=== PATIENT | male | born 1945 | race Caucasian/White ===

== ENCOUNTER 2016-07-01 01:55 | Inpatient (IN) | payer OTHER, MEDICARE ==
[~2016-07-01] VITALS: Ht 180.3 cm; Wt 93.0 kg
[~2016-07-01 01:55] MED LIST: AMLODIPINE BESY10 M1 PO; BYSTOLIC 5MG5 MG PO; BYSTOLIC10 M1 PO; CHILDREN'S ASPI81 M1 PO; CRESTOR20 M2 PO; CRESTOR20 MG PO; FISH OIL 1,2001 EACH PO; GLUCOSAMINE CH1 EAC6 PO; HCTZ/LISINOPRIL1 TA1 PO; LISINOPRIL-HCT1 EACH PO; MULTI-DAY VITA1 EACH PO; NORVASC 5MG TAB5 MG PO; NORVASC5 M1 PO; PLAVIX75 M1 PO; TESSALON PERLE100 MG SC; TESTOSTERO100 MG/1 M IM; TESTOSTERO200 MG/1 M IM; VITAMIN D2000 UNI1 PO
--- NOTE | 2016-07-01 14:10 | PN- Orthopedic ---
Subjective Subjective: Postop check Patient is now postoperative day #0 status post right total knee arthroplasty. Patient is seen in PACU. He has no major complaints at this time. He denies pain. He is tolerating sips of thin elena carol ann without complaints of nausea or emesis. Perales catheter remains in place. Denies headache, dizziness, chest pain, shortness of breath. Objective Vital Signs and I&Os Patient is afebrile. Vital signs as per the PACU report are stable. Physical Exam: Gen.: Patient is awake and alert. He is in no acute distress. Cardiac: Regular. No murmurs are appreciated. Pulmonary: Lungs are clear to auscultation bilaterally. No wheezes or appreciated. Extremities: The right lower extremity dressing is clean, dry, and intact. Foot is warm. There is mild calf edema on the right, but within expected postoperative limits. 2+ DP and PT pulses are appreciated. Strength of dorsiflexion and plantar flexion on the right 4 out of 5. Assessment/Plan Assessment/Plan Patient is a 71-year-old male with a past medical history significant for hypertension and peripheral vascular disease, who is now postoperative day #0 status post right TKA. Patient remains stable from a surgical standpoint. Plan: -Okay to advance diet as tolerated. -Leave Perales catheter in place for I's and O's. Continue IV fluids at 75 ML's per hour until tolerating adequate by mouth. We'll likely remove the catheter in the morning. -Percocet or morphine can be used as needed for pain. -PT consult for mobilization and discharge planning. She may weight-bear as tolerated with an assistive device. -Coumadin for DVT prophylaxis. Titrate dose to keep INR 2-3. Hold Plavix while on Coumadin. -Bowel regimen with Colace twice a day and MiraLAX daily. -24 hours of prophylactic IV antibiotics. -Home meds resumed, including beta jeyson. -Plan for dressing change of postop day #2. Core Measures/Miscellaneous Perales Catheter Date In: 07/01/16 Still Needed? Yes Venous Thromboembolism VTE Risk Factors: Age > 40, Surgery VTE Contraindications: No Contraindications VTE Prophylaxis Ordered Inpt: Mech & Pharm VTE Diagnosis: No Beta Jeyson Is Beta Jeyson a Home Med? Yes Antibiotics Is Patient on Antibiotics? Yes If Yes: prophylaxis
[2016-07-01 14:43] VITALS: BP 168/44
[2016-07-01 17:14] VITALS: BP 130/60
[2016-07-01 18:56] VITALS: BP 130/50
--- NOTE | 2016-07-01 20:45 | NUR ---
PT ARRIVED TO FLOOR APPROX 1420. AMBULATED FROM STRETCHER TO BED WITH PT. ORIENTED TO FLOOR, BROCHURE.
[2016-07-01 21:55] VITALS: BP 150/50
[2016-07-02 01:24] VITALS: BP 120/50
[2016-07-02 05:22] VITALS: BP 146/60
--- NOTE | 2016-07-02 07:35 | PN- Orthopedic ---
See Addendum Subjective Subjective: Reports discomfort under right knee. Pain improves with percocet and morphine. Tolerating clears. No nausea. Feels slightly dizzy in bed. No shortness of breath. No chest pains. Awaiting PT. Objective Vital Signs and I&Os Vital Signs Date Time Temp Pulse Resp B/P Pulse O2 O2 Flow FiO2 Ox Delivery Rate 07/02 0522 97.9 104 20 146/60 92 Room Air 07/02 0124 98.3 96 20 120/50 94 Room Air 07/01 2155 98.9 90 20 150/50 90 Room Air 07/01 2139 80 150/50 07/01 1856 97.9 87 20 130/50 93 Room Air 07/01 1714 97.5 86 20 130/60 95 Room Air 07/01 1443 96.8 80 18 168/44 94 Room Air Intake & Output 07/02 0800 07/02 0000 07/01 1600 07/01 0800 07/01 0000 06/30 1600 Intake Total 800 850 Output Total 1400 1600 Balance -600 -750 Intake, IV 600 600 Intake, Oral 200 250 Output, Urine 1400 1600 Patient 205 lb Weight Physical Exam: General - alert & oriented x 3. comfortable. no acute distress. Lungs - clear bilaterally. no w/r/r. Cardiac - s1s2. reg. Abdomen - soft. nontender. - nicole draining clear, yellow urine. Extremities - warm bilaterally. dressing c/d/i. no drains. calves soft and nontender. venodynes active b/l. Assessment/Plan Assessment/Plan Patient is a 71-year-old male with a past medical history significant for hypertension and peripheral vascular disease, who is now POD#1 s/p right TKR tolerating diet. d/c iv fluids d/c nicole PT eval f/u labs coumadin accordingly. hold plavix while taking coumadin. home bp meds ordered, including beta jeyson bowel regime ordered shalini-op antibiotics complete dressing change tomorrow will d/w Core Measures/Miscellaneous Nicole Catheter Date In: 07/01/16 Venous Thromboembolism VTE Risk Factors: Age > 40, Surgery VTE Contraindications: No Contraindications VTE Prophylaxis Ordered Inpt: Mech & Pharm VTE Diagnosis: No Beta Jeyson Is Beta Jeyson a Home Med? Yes Antibiotics Is Patient on Antibiotics? Yes If Yes: prophylaxis
[2016-07-02 09:18] LABS: ABSOLUTE BASOPHIL COUNT 0 /CUMM (0.0-0.2); ABSOLUTE EOSINOPHIL COUNT 0 /CUMM (0.0-0.7); ABSOLUTE GRANULOCYTE CT 8.5 /CUMM (1.4-6.5); ABSOLUTE LYMPH COUNT 1.5 /CUMM (1.2-3.4); ABSOLUTE MONOCYTE COUNT 0.9 /CUMM (0.10-0.60); BASOPHIL % 0.2 % (0.0-2.0); EOSINOPHIL % 0.2 % (0-5); GRANULOCYTE % 77.3 % (42.2-75.2); HEMATOCRIT 39.4 % (42-52); MEAN CORPUSCULAR HGB 33.6 PG (27.0-31.0); MEAN CORPUSCULAR HGB CONC 34.8 G/DL (33.0-37.0); MEAN CORPUSCULAR VOLUME 96.4 FL (80.0-94.0); MEAN PLATELET VOLUME 7.4 FL (7.4-10.4); PLATELET COUNT 231 /CUMM (130-400); RBC DISTRIBUTION WIDTH 13.1 % (11.5-14.5); RED BLOOD CELL CT 4.09 /CUMM (4.70-6.10); WHITE BLOOD CELL COUNT 10.9 /CUMM (4.8-10.8)
[2016-07-02 09:27] LABS: PT 12.1 SEC (9.4-12.5)
[2016-07-02 15:42] VITALS: BP 140/60
--- NOTE | 2016-07-02 16:22 | NUR ---
PT FEELING NAUSEOUS AT 1400, MEDICATED WITH ZOFRAN. PT ATTRIBUTES TO LACK OF SLEEP, NOT EATING ENOUGH, AND PERCOCET. ENCOURAGED TO EAT SMALL AMOUNTS AND TRY TO REST.
[2016-07-02 21:00] VITALS: BP 110/64
--- NOTE | 2016-07-03 07:15 | PN- Orthopedic ---
See Addendum Subjective Subjective: He reports "upset stomach" after percocet yesterday. Taking morphine for pain control. He's resistant to bearing weight on his operative leg due to pain. He anticipates needing rehab. No dizziness. No shortness of breath. No chest pains. Voiding without difficulty. Objective Vital Signs and I&Os Vital Signs Date Time Temp Pulse Resp B/P Pulse O2 O2 Flow FiO2 Ox Delivery Rate 07/03 0000 93 Nasal 2.0L Cannula 07/02 2121 92 110/64 07/02 2100 98.2 92 14 11064 92 Nasal 2.0L Cannula 07/02 1542 97.6 86 20 140/60 95 07/02 1124 160/60 07/02 1124 160/60 07/02 1123 160/60 Intake & Output 07/03 0800 07/03 0000 07/02 1600 07/02 0800 07/02 0000 07/01 1600 Intake Total 785 289 9795 800 850 Output Total 450 1400 1600 Balance 350 460 850 -600 -750 Intake, IV 0 600 600 Intake, Oral 124 358 2856 200 250 Output, Urine 450 1400 1600 Patient 205 lb Weight Physical Exam: General - alert & oriented x 3. comfortable. no acute distress. Lungs - clear bilaterally. decreased breath sounds b/l bases Cardiac - s1s2. reg. Abdomen - soft. nontender. Extremities - warm bilaterally. dressings removed from right leg. incision approximated with steri strips. no erythema or exudates. calves soft and nontender b/l. nvi. Assessment/Plan Assessment/Plan Patient is a 71-year-old male with a past medical history significant for hypertension and peripheral vascular disease, who is now POD#2 s/p right TKR tolerating diet will d/c percocet. try dilaudid pills. dressing changed continue PT f/u labs coumadin accordingly. continue to hold plavix for now. bowel regime ordered wean o2. IS d/c planning for rehab tomorrow will d/w Core Measures/Miscellaneous Perales Catheter Date In: 07/01/16 Venous Thromboembolism VTE Risk Factors: Age > 40, Surgery VTE Contraindications: No Contraindications VTE Prophylaxis Ordered Inpt: Mech & Pharm VTE Diagnosis: No Beta Jeyson Is Beta Jeyson a Home Med? Yes Antibiotics Is Patient on Antibiotics? Yes If Yes: prophylaxis
[2016-07-03 07:55] LABS: ABSOLUTE BASOPHIL COUNT 0 /CUMM (0.0-0.2); ABSOLUTE EOSINOPHIL COUNT 0.1 /CUMM (0.0-0.7); ABSOLUTE GRANULOCYTE CT 6.6 /CUMM (1.4-6.5); ABSOLUTE MONOCYTE COUNT 0.8 /CUMM (0.10-0.60); BASOPHIL % 0.2 % (0.0-2.0); EOSINOPHIL % 0.6 % (0-5); GRANULOCYTE % 77.5 % (42.2-75.2); HEMATOCRIT 34.5 % (42-52); MEAN CORPUSCULAR HGB 33.7 PG (27.0-31.0); MEAN CORPUSCULAR HGB CONC 34.9 G/DL (33.0-37.0); MEAN CORPUSCULAR VOLUME 96.7 FL (80.0-94.0); MEAN PLATELET VOLUME 7.5 FL (7.4-10.4); PLATELET COUNT 187 /CUMM (130-400); RED BLOOD CELL CT 3.57 /CUMM (4.70-6.10); WHITE BLOOD CELL COUNT 8.5 /CUMM (4.8-10.8)
[2016-07-03 08:16] LABS: PT 13.4 SEC (9.4-12.5)
--- NOTE | 2016-07-03 08:39 | NUR ---
Physical Therapy: Attempted to see patient but patient refused treatment 2/2 to complaints of significant pain. Despite education of why it was important for him to participate in physical therapy. Will attempt to see the patient again as appropriate.
--- NOTE | 2016-07-03 10:14 | RADIOLOGY REPORT ---
EXAMINATION: XR KNEE, RIGHT CLINICAL INFORMATION: Status post right total knee arthroplasty. COMPARISON: None. TECHNIQUE: Frontal and lateral views of the right knee. FINDINGS: The patient is status post total knee arthroplasty with the prosthetic components well seated within the [place] bone. Alignment is anatomical. There is a moderate size suprapatellar knee joint effusion and prominent prepatellar soft tissue swelling. There is some amorphous densities seen posteriorly in the knee joint, possibly representing some extravasated cement. No [place] bone fracture is seen. Mild calcification in the distal quadriceps tendon insertion upon the patella is seen. Extensive arterial vascular calcifications are seen in the soft tissues and a distal femoral arterial vascular stent is partially imaged. IMPRESSION: 1. Anatomic alignment status post total right knee arthroplasty with no hardware failure or [place] bone fracture seen. 2. Moderate size suprapatellar knee joint effusion and prepatellar soft tissue swelling. 3. Extensive arterial vascular calcifications with distal femoral arterial stent partially imaged.
[2016-07-03 15:24] VITALS: BP 140/60
--- NOTE | 2016-07-03 16:13 | Patient Discharge Instructions ---
Discharge Instructions General Discharge Information You were seen/treated for: Right knee pain You had these procedures: Right total knee replacement Watch for these problems: Increasing pain, redness, warmth, swelling. Drainage of any type from incision. Inability to bear weight on operative leg. Fever greater than 101.5. Do not soak the wound: Yes No bath, but you may shower: Yes Other wound care: Daily dry dressing changes Special Instructions: You're taking a blood thinning medication called Coumadin. Another name for this medication is warfarin. The dose of this medication is subject to change daily. It is based on INR. INR is a lab value that measures how thin your blood is, and it will be checked twice weekly. Please obtain specific instructions from Dean Abernathy MD's office regarding how much Coumadin you are to be taking on a daily basis. Diet Continue normal diet: Yes Recommended Diet: Heart Healthy Additional DIET Information: Advance as tolerated Activity Full Activity/No Limits: No Activity Self Limited: Yes Pounds, do NOT lift more than: 10 Additional ACTIVITY Info: Weight-bear as tolerated on right leg Acute Coronary Syndrome Inclusion Criteria At DC or during hospital stay patient has or had the following: ACS DIAGNOSIS No Discharge Core Measures Meds if any: Prescribed or Continued at Discharge Meds if any: NOT Prescribed or Continued at Discharge Congestive Heart Failure Inclusion Criteria At DC or during hospital stay patient has or had the following: CHF DIAGNOSIS No Discharge Core Measures Meds if any: Prescribed or Continued at Discharge Meds if any: NOT Prescribed or Continued at Discharge Cerebrovascular accident Inclusion Criteria At DC or during hospital stay patient has or had the following: CVA/TIA Diagnosis No Discharge Core Measures Meds if any: Prescribed or Continued at Discharge Meds if any: NOT Prescribed or Continued at Discharge Venous thromboembolism Inclusion Criteria VTE Diagnosis No VTE Type NONE VTE Confirmed by (Test) NONE Discharge Core Measures - Per Current guidelines, there needs to be overlap - treatment for the first 5 days of Warfarin therapy. - If discharged on Warfarin prior to 5 days of - overlap therapy, the patient will need to be - assessed for post discharge needs including - *Post discharge parental anticoagulation - *Warfarin and/or parental anticoagulation education - *Follow up date to check INR post discharge At least 5 days overlap therapy as Inpatient No Meds if any: Prescribed or Continued at Discharge Note: Overlap Therapy is Warfarin and Anticoagulant Meds if any: NOT Prescribed or Continued at Discharge
--- NOTE | 2016-07-03 16:14 | Surgical Discharge Summary ---
See Addendum Visit Information Visit Dates Admission Date: 07/01/16 Discharge Date: 07/04/2016 History of Present Illness Chief Complaint: Right knee pain Medical History Blood Transfusion Hx: Yes Neurological: OCCASIONAL TREMORS EENT: NONE Cardiovascular: CAD, hypertension, hyperlipidemia Respiratory: COPD Gastrointestinal: HEARTBURN Hepatic: NONE Renal: NONE Psychiatric: NONE Endocrine: NONE Blood Disorders: NONE Cancer(s): NONE History of MRSA: No History of VRE: No History of CDIFF: No Isolation History: Standard Pneumonia Vaccine: 09/07/10 Influenza Vaccine: 03/09/16 Surgical History Pertinent Surgical History: cataract removal, ROTATOR CUFF REPLACEMENT CAROTID ENDARECTOMY ANGIOPLASTY STENT PLACEMENTS Psychosocial History Who Do You Live With? Spouse Services at Home: None What is Your Primary Language? Prydeinig Review of Systems: See H&P Hospital Course Course Attending Physician: MIRIAM LYN,DEAN Primary Care Physician: SUELLEN LYN,[facility] Course: Patient was admitted to the hospital on 07/01/2016 for an elective right total knee replacement. He tolerated the procedure well. He was transferred to a general surgical floor. His diet was advanced and tolerated. His vital signs are stable and within normal limits. He voided spontaneously. His pain was well controlled. He was evaluated and treated by physical therapy. He was deemed appropriate for discharge. Allergies: Coded Allergies: shellfish derived (HIVES 06/24/16) Disposition Summary Disposition Principal Diagnosis: Right knee unilateral primary osteoarthritis Additional Diagnosis: None Discharge Disposition: SNF Discharge Instructions General Discharge Information Code Status: Full Code Patient's Diet: Heart healthy, advance as tolerated Patient's Activity: Weight-bear as tolerated on right leg Follow-Up Instructions/Appts: Please contact Dean Abernathy MD's office regarding follow-up appointment. He would like for you to be seen in 6 weeks from date of surgery. Medications at Discharge Discharge Medications: Stop taking the following medications: Clopidogrel Bisulfate (Plavix) 75 MG TABLET ORAL DAILY Continue taking these medications: Aspirin (Children's Aspirin) 81 MG TAB.CHEW 1 Tablet ORAL DAILY Comments: DOCUMENTED PER CMR DURING PRE-SX INTERVIEW Nebivolol HCl (Bystolic) 10 MG TABLET 1 Tablet ORAL As Directed Comments: DOCUMENTED PER CMR DURING PRE-SX INTERVIEW Lisinopril/Hydrochlorothiazide (Lisinopril-Hctz 20-12.5 MG Tab) 20 MG-12.5 MG TABLET 1 Tablet ORAL DAILY Comments: DOCUMENTED PER CMR DURING PRE-SX INTERVIEW Rosuvastatin Calcium (Crestor) 20 MG TABLET 1 Tablet ORAL DAILY Comments: DOCUMENTED PER CMR DURING PRE-SX INTERVIEW Testosterone Cypionate (Testosterone Cypionate) 100 MG/ML VIAL 1 Milliliters INTRAMUSC EVERY FRIDAY Comments: PER PT VERBALLY CONFIRMED Amlodipine Besylate (Norvasc) 5 MG TABLET 1 Tablet ORAL TWICE DAILY Comments: PER PT VERBALLY CONFIRMED Multivitamin (Multi-Day Vitamins) 1 EACH TABLET 1 Tablet ORAL DAILY Comments: DOCUMENTED PER CMR DURING PRE-SX INTERVIEW Fish Oil/Dha/Epa (Fish Oil 1,200 MG Fish Oil) (Unknown Strength) CAPSULE 1,200 Milligram ORAL TWICE DAILY Comments: DOCUMENTED PER CMR DURING PRE-SX INTERVIEW Glucosamine/MSM/Chondroitin A (Glucosamine Chondroit MSM Tab) (Unknown Strength) TABLET 1,500 Milligram ORAL TWICE DAILY Comments: DOCUMENTED PER CMR DURING PRE-SX INTERVIEW Cholecalciferol (Vitamin D3) (Vitamin D) 2,000 UNIT TABLET 1 Tablet ORAL DAILY Comments: DOCUMENTED PER CMR DURING PRE-SX INTERVIEW Start taking the following new medications: Hydromorphone HCl (Dilaudid) 2 MG TABLET 1-2 Tablet ORAL Q4-6H as needed for PAIN Qty = 36 No Refills Warfarin Sodium (Coumadin) 2.5 MG TABLET 1 Tablet ORAL DAILY Qty = 30 No Refills Instructions: DOSE TO BE TITRATED DAILY FOR [facility] INR 2-3
--- NOTE | 2016-07-03 16:30 | Operative Report ---
Operative/Inv Procedure Report Surgery Date: 07/01/16 Name of Procedure: Right total knee arthroplasty Pre-Operative Diagnosis: Right knee primary osteoarthritis Post-Operative Diagnosis: Same Estimated Blood Loss: less than 50ml Surgeon/Supervisor Welding Equipment Repairer: MIRIAM LYN,Esteban LADD Anesthesia: block Implants: Conformis I total femur, I total of tibia, lateral insert a 32 patella Drains: None Specimens: Femoral, tibial, patellar bone Tourniquet: 63 minutes Complications: None Condition: Stable Operative Indication: Patient is a 71-year-old man with gradually worsening right knee symptoms consistent with osteoarthritis. This was confirmed by plain x-ray. He had severe end-stage degenerative changes. He underwent conservative management with only short-term relief. He wished to proceed with total knee arthroplasty after risks, benefits and expectations of surgical management were discussed including but not limited to persistent knee pain, need for subsequent surgery, infection, DVT, injury to blood vessel or nerve, anesthesia risks Operative/Procedure Note Note: Patient was brought to the operating room and transferred to the operating table. Once under appropriate anesthesia the right lower extremity was prepped and draped in standard fashion. Reoperative IV antibiotics were given prophylactically. The leg was elevated exsanguinated and tourniquet was inflated to 300 mm of pressure. A standard anterior incision was made for anticipated medial parapatellar approach to the knee. Incision was taken down sharply to the underlying retinaculum. The knee was flexed and patella was subluxed laterally to facilitate exposure. A portion of the fat pad was excised. I then used the F1 jig. Any remaining articular cartilage was reamed with the articular cartilage reamer. I then used the comminution jig of the F2 and F3 C. The distal femoral cutting block was pinned in position. I then made my distal femoral cut and step cut. The confirm the cuts with the cutting block. I then removed the distal femoral cutting block after drilling the 2 reference pinholes. These were also marked with the ink pen for later use. I then completed the anterior cut posterior cuts and the anterior chamfer chamfer cuts with the remaining 2 jigs of the femur. I was satisfied with the femoral preparation. I then turned my attention to the tibia. I used the custom tibial jig marked the area of anticipated placement and then removed any remaining articular cartilage from the tibial surface down to the subchondral bone. I then replaced the tibial jig and pin the cutting block in neutral position. I protected soft tissues medially laterally and posteriorly and made my tibial cut. Again I was satisfied with this I did a trial reduction. I was satisfied with the lateral insert a. This was followed by preparation of the patella. The patella was measured and the appropriate thickness was removed and then replaced the 32 patella. I was satisfied with the soft tissue balancing and full flexion to gravity, mid flexion and full extension drilled my 2 lug holes for the femur and then removed all jigs. I finished preparation of the tibia with the tibial punch after marking the previously determined rotation. I then copiously irrigated the bony surfaces of the cement was being mixed on the back table. I then applied the cement to the dry clean bony surfaces of the tibia. The tibial component was impacted in place. Excess cement was removed with curettes. Cement was applied to the dry clean bony surfaces of the femur and the custom I total femoral component was impacted in place and excess cement was removed with curettes. Cement was applied to the dry clean bony surfaces of the patella and the patellar component was impacted in place and cement was removed with knife. As the cement was hardening I did appear articular pericapsular injection of the long-acting Marcaine for postoperative pain management. Once the cement hardened I took the knee through range motion. Small pieces of excess cement were removed with an osteotome. With my trialing and determining that the lateral insert a was best for patient's soft tissue balancing. Copious irrigation tibial tray followed and then I impacted the definitive polyethylene inserts individually. Locking mechanisms were confirmed. Took the knee through range of motion I was satisfied with the full extension mid flexion gravity and full flexion to gravity. No need for lateral release. Copious irrigation followed tourniquet was deflated at 63 minutes hemostasis was obtained. Every level of closure was Followed by copious irrigation. The retinacular and medial quadriceps tendon extension was closed with interrupted #1 Vicryl sutures followed by 20 closure with the subcutaneous case tissues in 2 layers and then skin was closed with 3-0 Vicryl suture with the knee in flexion. Appropriate dressings were applied and patient was awakened and taken the recovery room in good condition. No intraoperative complications Discharge Disposition: PACU
[2016-07-03 23:13] VITALS: BP 144/50
[2016-07-04 06:22] VITALS: BP 100/60
--- NOTE | 2016-07-04 07:21 | PN- Orthopedic ---
Subjective Subjective: Awake, alert Still complaining of pain but tolerable with meds. Would like to try percocet again on a full stomach instead of dilaudid Objective Vital Signs and I&Os Vital Signs Date Time Temp Pulse Resp B/P Pulse O2 O2 Flow FiO2 Ox Delivery Rate 07/04 0622 98.7 84 20 100/60 94 Room Air 07/03 2313 98.8 83 16 144/50 93 Room Air 07/03 2047 110/64 07/03 1524 98.2 89 20 140/60 93 07/03 1449 Room Air Room Air 07/03 1216 148/80 07/03 1216 148/80 07/03 1216 148/80 Intake & Output 07/04 0800 07/04 0000 07/03 1600 07/03 0807/03 0000 07/02 1600 Intake Total 120 457 487 3216 Output Total 300 450 Balance -300 120 350 460 850 Intake, IV 0 Intake, Oral 120 475 717 6511 Output, Urine 300 450 Physical Exam: vss, afebrile Working with PT - cleared for Home PT General: alert and oriented times three Chest: clear anteriorly bilaterally, RRR Abd: soft, good bs Ext: warm, no calf tenderness R knee appropriate post op swelling, no drainage of wound Wound: dressed, dry, steri strips in place Assessment/Plan Assessment/Plan 71 yo male s/p R TKR Plan to dc home with home services change dilaudid to percocet this morning coumadin per INR Core Measures/Miscellaneous Perales Catheter Date In: 07/01/16 Venous Thromboembolism VTE Risk Factors: Age > 40, Surgery VTE Contraindications: No Contraindications VTE Prophylaxis Ordered Inpt: Mech & Pharm VTE Diagnosis: No Beta Jeyson Is Beta Jeyson a Home Med? Yes Antibiotics Is Patient on Antibiotics? No If Yes: prophylaxis
[2016-07-04 08:43] VITALS: BP 100/60
[2016-07-04 09:05] LABS: ABSOLUTE BASOPHIL COUNT 0 /CUMM (0.0-0.2); ABSOLUTE EOSINOPHIL COUNT 0.1 /CUMM (0.0-0.7); ABSOLUTE GRANULOCYTE CT 5.7 /CUMM (1.4-6.5); ABSOLUTE LYMPH COUNT 1.2 /CUMM (1.2-3.4); ABSOLUTE MONOCYTE COUNT 0.8 /CUMM (0.10-0.60); BASOPHIL % 0.3 % (0.0-2.0); EOSINOPHIL % 1.5 % (0-5); GRANULOCYTE % 72.4 % (42.2-75.2); HEMATOCRIT 33.9 % (42-52); MEAN CORPUSCULAR HGB 33.9 PG (27.0-31.0); MEAN CORPUSCULAR VOLUME 96.6 FL (80.0-94.0); MEAN PLATELET VOLUME 7.5 FL (7.4-10.4); PLATELET COUNT 193 /CUMM (130-400); PT 14.1 SEC (9.4-12.5); RBC DISTRIBUTION WIDTH 13.1 % (11.5-14.5); RED BLOOD CELL CT 3.51 /CUMM (4.70-6.10); WHITE BLOOD CELL COUNT 7.9 /CUMM (4.8-10.8)
[2016-07-04] MEDS ORDERED: DILAUDID2 M1 PO (09:36)
[2016-07-04] MEDS ORDERED: COUMADIN2.5 M1 PO (09:36)
[2016-07-04] MEDS ORDERED: COLACE100 M1 PO (09:36)
[2016-07-04] MEDS ORDERED: PERCOCET 5-3251 EACH PO (09:56)
== END 2016-07-04 11:08 | disposition home health service (06) | DRG 470 ==
LOC: ENRESERVTM → ENRESERVDT → 2NA 01:55 → SDA 01:55 → ENPENDDIS 01:55 → STS 07:00 → EDSTATUS 07:00 → 2NA 14:46
PROVIDERS: Nurse Practitioner; Physician Assistant; Physician Assistant Surgical; ADMIT Orthopaedic Surgery
PROC: 0SRC0J9 Replacement of Right Knee Joint with Synthetic Substitute, Cemented, Open Approach (ICD-10-PCS; principal; 2016-07-01)
DX: M17.11 Unilateral primary osteoarthritis, right knee (principal); J44.9 Chronic obstructive pulmonary disease, unspecified; I10 Essential (primary) hypertension; I73.9 Peripheral vascular disease, unspecified; I25.10 Atherosclerotic heart disease of native coronary artery without angina pectoris; E78.5 Hyperlipidemia, unspecified; K21.9 Gastro-esophageal reflux disease without esophagitis
CPT/HCPCS: 2NASP; 73560-RT; 82436; 87086; 88305; 97110-GO; 97116-GO; 97161-GP; 97530-GO; C1713; C9290; J0131; J0690; J2405; J3370; J7040